=== PATIENT | female | born 1950 | race Caucasian/White ===

== ENCOUNTER 2019-08-22 15:33 | Emergency (ER) | payer OTHER ==
[~2019-08-22] VITALS: Ht 160 cm; Wt 76.2 kg
[2019-08-22] MEDS ORDERED: TOPROL XL100 MG PO (15:43)
[2019-08-22] MEDS ORDERED: ALLERGY PILL (15:44)
[2019-08-22] MEDS ORDERED: DIURETIC (15:48)
[2019-08-22] MEDS ORDERED: ERYTHROMYCIN E3.5 G3 OPHTHALMIC (15:56)
[2019-08-22 16:23] VITALS: BP 151/63
== END 2019-08-22 16:23 | disposition home or self-care (01) ==
LOC: M.ERS 15:33
DX: H10.13 Acute atopic conjunctivitis, bilateral (principal); H00.15 Chalazion left lower eyelid; I10 Essential (primary) hypertension